=== PATIENT | male | born 1985 | race Caucasian/White ===

== ENCOUNTER 2021-06-15 20:11 | Emergency (ER) | payer OTHER ==
--- NOTE | 2021-06-15 20:49 | EDM.PDOC ---
ED HPI GENERAL MEDICAL PROBLEM - General Chief Complaint: Headache Stated Complaint: MIRGRAINE, 3 DAYS, NAUSEA Time Seen by Provider: 06/15/21 20:49 Source of Information: Reports: Patient History Limitations: Reports: No Limitations - History of Present Illness INITIAL COMMENTS - FREE TEXT/NARRATIVE: Patient is a unfortunate 36-year-old male who presents emerged part today with complaint of headache. The patient reports that symptoms started 3 days ago and progressively worsened since. The patient reports that this is "the worst headache of my life". Patient reports that he has taken multiple doses of Excedrin Migraine at home with no improvement in symptoms. He reports he started vomiting today he has photophobia and phonophobia he has had no fever no chills no nuchal rigidity Headache Pain Score (Numeric/FACES): 10 - Related Data Allergies Allergy/AdvReac Type Severity Reaction Status Date / Time No Known Allergies Allergy Verified 06/15/21 21:29 Home Meds: Home Meds Aspirin/Acetaminophen/Caffeine [Excedrin Migraine Caplet] 06/15/21 [History] ED ROS GENERAL - Review of Systems Review Of Systems: See Below Constitutional: Denies: Fever, Chills GI/Abdominal: Reports: Nausea, Vomiting Neurological: Reports: Headache - Physical Exam Exam: See Below Exam Limited By: No Limitations General Appearance: Alert, WD/WN, Mild Distress Eye Exam: Bilateral Eye: PERRL Ears: Normal External Exam, Normal Canal, Hearing Grossly Normal, Normal TMs Nose: Normal Inspection, Normal Mucosa, No Blood Throat/Mouth: Normal Inspection, Normal Lips, Normal Teeth, Normal Gums, Normal Oropharynx, Normal Voice, No Airway Compromise Head Exam: Atraumatic, Normocephalic Respiratory/Chest: No Respiratory Distress, Lungs Clear, Normal Breath Sounds, No Accessory Muscle Use, Chest Non-Tender Cardiovascular: Normal Peripheral Pulses, Regular Rate, Rhythm, No Edema, No Gallop, No JVD, No Murmur, No Rub Neuro Exam (Abbreviated): Alert, Oriented, CN II-XII Intact, Normal Cognition, Normal Gait, Normal Reflexes, No Motor/Sensory Deficits Back Exam: Normal Inspection, Full Range of Motion, NT Extremities: Normal Inspection, Normal Range of Motion, Non-Tender, No Pedal Edema, Normal Capillary Refill Skin Exam: Warm, Dry, Intact, Normal Color, No Rash Course - Vital Signs Text/Narrative:: Work-up today was reassuring, CT head was normal, the radiology reports "no intracranial abnormality", the patient will be discharged home and encouraged to follow-up outpatient with PCP or to return to the emergency department for any worsening condition Last Recorded V/S: Last Vital Signs Temp 97.7 F 06/15/21 21:08 Pulse 90 06/15/21 21:08 Resp 18 06/15/21 21:08 BP 132/86 06/15/21 21:08 Pulse Ox 99 06/15/21 21:08 - Orders/Labs/Meds Meds: Medications Discontinued Medications Generic Name Dose Route Start Last Admin Trade Name Dhiraj PRN Reason Stop Dose Admin Diphenhydramine HCl 25 mg 06/15/21 20:54 06/15/21 21:14 Diphenhydramine 50 Mg/Ml Sdv IVPUSH 06/15/21 20:55 25 mg ONETIME ONE Administration Sodium Chloride 1,000 mls @ 1,000 mls/hr 06/15/21 20:53 06/15/21 21:14 Normal Saline IV 06/15/21 21:52 1,000 mls/hr .BOLUS ONE Administration Ketorolac Tromethamine 30 mg 06/15/21 22:05 06/15/21 22:12 Ketorolac 30 Mg/Ml Sdv IVPUSH 06/15/21 22:06 30 mg ONETIME ONE Administration Metoclopramide HCl 10 mg 06/15/21 20:54 06/15/21 21:14 Metoclopramide 10 Mg/2 Ml Sdv IVPUSH 06/15/21 20:55 10 mg ONETIME ONE Administration Departure - Departure Time of Disposition: 22:28 Disposition: Home, Self-Care 01 Condition: Good Clinical Impression: Migraine - Discharge Information *PRESCRIPTION DRUG MONITORING PROGRAM REVIEWED*: No *COPY OF PRESCRIPTION DRUG MONITORING REPORT IN PATIENT YOGESH: No Instructions: Migraine Headache, [id number] Forms: ED Department Discharge Additional Instructions: Home, rest in a dark quiet room, avoid bright lights, return as needed for worsening condition Sepsis Event Note (ED) - Focused Exam Vital Signs: Vital Signs Temp Pulse Resp BP Pulse Ox 06/15/21 21:08 97.7 F 90 18 132/86 99
[2021-06-15] MEDS ORDERED: Sodium Chloride 0.9% 1,000 ML IV ONE (20:53)
[2021-06-15] MEDS ORDERED: diphenhydrAMINE 50 MG/ML SDV IVPUSH ONE (20:54)
[2021-06-15] MEDS ORDERED: Metoclopramide 10 MG/2 ML SDV IVPUSH ONE (20:54)
[2021-06-15] MEDS ORDERED: Ketorolac 30 MG/ML SDV IVPUSH ONE (22:05)
--- NOTE | 2021-06-15 22:19 | CT ---
PROCEDURE INFORMATION: Exam: CT Head Without Contrast Exam date and time: 06/15/2021 9:57 PM Age: 36 years old Clinical indication: Other: Headache TECHNIQUE: Imaging protocol: Computed tomography of the head without contrast. Radiation optimization: All CT scans at this facility use at least one of these dose optimization techniques: automated exposure control; mA and/or kV adjustment per patient size (includes targeted exams where dose is matched to clinical indication); or iterative reconstruction. COMPARISON: No relevant prior studies available. FINDINGS: Brain: No acute intracranial hemorrhage. Moody-white matter differentiation is normal. Cerebral ventricles: No ventriculomegaly. Paranasal sinuses: Unremarkable. Mastoid air cells: Unremarkable. Bones/joints: No acute fracture. Soft tissues: Unremarkable. IMPRESSION: No acute intracranial abnormality.
== END 2021-06-15 22:58 | disposition home or self-care (01) ==
LOC: DL.ED 20:11
DX: G43.909 Migraine, unspecified, not intractable, without status migrainosus (principal); Z79.82 Long term (current) use of aspirin
CPT/HCPCS: 70450; 96374; 96375; 99283; 99283-25; J1200; J1885; J2765; J7030